=== PATIENT | female | born 2005 | race Caucasian/White ===

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

== ENCOUNTER 2024-01-17 04:27 | Emergency (ER) | payer BC ==
[2024-01-17 05:58] LABS: Basophils % (A) 0 %; Eosinophils # (A) 0.2 k/uL (0-0.7); Eosinophils % (A) 1 %; HCT 36.1 % (34.0-46.0); HGB 11.1 gm/dL (11.4-16.0); Hypochromasia Slight; Lymphocytes % (A) 17 %; MCHC 30.6 g/dL (31.0-37.0); MCV 81.7 fL (80.0-100.0); Mean Platelet Volume 9.4; Monocytes # (A) 0.6 k/uL (0-1.0); Monocytes % (A) 5 %; Neutrophils % (A) 76 %; Platelet Count 234 k/uL (150-450); RBC 4.42 m/uL (3.80-5.40); RDW 15.7 % (11.5-15.5); WBC 11.8 k/uL (4.0-11.0)
[2024-01-17 06:06] LABS: ALT 32 U/L (4-34); AST 55 U/L (14-36); African American GFR (CKD) >90 (>60 ml/min/1.73 sqM); Albumin 3.8 g/dL (3.5-5.0); Alkaline Phosphatase 78 U/L (38-126); Amylase 55 U/L (30-110); Anion Gap 6 mmol/L; Blood Urea Nitrogen 11 mg/dL (7-17); Calcium 8.9 mg/dL (8.4-10.2); Carbon Dioxide 26 mmol/L (22-30); Chloride 108 mmol/L (98-107); Glucose 97 mg/dL (74-99); Lipase 152 U/L (23-300); Non-African American GFR(CKD) >90 (>60 ml/min/1.73 sqM); Potassium 4.2 mmol/L (3.5-5.1); Sodium 140 mmol/L (137-145); Total Bilirubin 0.4 mg/dL (0.2-1.3); Total Protein 6.2 g/dL (6.3-8.2)
--- NOTE | 2024-01-17 06:31 | ED ---
Abdominal Pain HPI - General Chief Complaint: Abdominal Pain Stated Complaint: ABD Pain, Vomit, Hot flashes Time Seen by Provider: 01/17/24 05:56 Source: patient, RN notes reviewed Mode of arrival: ambulatory Limitations: no limitations - History of Present Illness Initial Comments: This is a 18-year-old female who presents to the emergency department for abdominal pain. Reports intermittent abdominal pain for the last 3 days. States that this morning she was woken up by pain in the upper abdominal region. She had some radiation of pain into the back. This has since started to improve to some extent, but states that this morning it was more severe than it had been in the past. She had associated nausea and vomiting this morning as well. Denies any changes in bowel or bladder habits. Prior to the last few days she has never experienced pain like this in the past. MD Complaint: abdominal pain - Related Data Home Medications Medication Instructions Recorded Confirmed Dexmethylphenidate HCl [Focalin Xr] 20 mg PO MOTUWETHFR 04/29/21 04/29/21 Multivitamins, Thera [Multivitamin 1 tab PO DAILY 04/29/21 04/29/21 (formulary)] Previous Rx's Medication Instructions Recorded Ketorolac [Toradol] 10 mg PO Q6HR PRN #15 tab 01/17/24 Ondansetron Odt [Zofran Odt] 4 mg PO Q8HR PRN #20 tab 01/17/24 Allergies Allergy/AdvReac Type Severity Reaction Status Date / Time No Known Allergies Allergy Verified 01/17/24 04:31 Review of Systems ROS Statement: Those systems with pertinent positive or pertinent negative responses have been documented in the HPI. ROS Other: All systems not noted in ROS Statement are negative. Past Medical History Past Medical History: No Reported History History of Any Multi-Drug Resistant Organisms: None Reported Past Surgical History: Adenoidectomy, Tonsillectomy Past Psychological History: No Psychological Hx Reported Smoking Status: Current some day smoker Past Alcohol Use History: Occasional Past Drug Use History: None Reported General Exam Limitations: no limitations General appearance: alert, in no apparent distress Head exam: Present: atraumatic, normocephalic, normal inspection Respiratory exam: Present: normal lung sounds bilaterally. Absent: respiratory distress, wheezes, rales, rhonchi, stridor Cardiovascular Exam: Present: regular rate, normal rhythm, normal heart sounds. Absent: systolic murmur, diastolic murmur, rubs, gallop, clicks GI/Abdominal exam: Present: soft, tenderness (Epigastric), normal bowel sounds. Absent: distended Neurological exam: Present: alert, oriented X3, CN II-XII intact Psychiatric exam: Present: normal affect, normal mood Skin exam: Present: warm, dry, intact, normal color. Absent: rash Course Vital Signs 01/17/24 01/17/24 01/17/24 04:31 06:00 07:53 Temperature 97.6 F 98.0 F 98.2 F Pulse Rate 56 L 49 L 52 L Respiratory 18 14 16 Rate Blood Pressure 101/63 92/57 103/69 O2 Sat by Pulse 100 99 100 Oximetry Medical Decision Making - Medical Decision Making This is a 18 year old female who presents to the emergency department for abdominal pain. Was pt. sent in by a medical professional or institution? @ -No Did you speak to anyone other than the patient for history? @ -No Did you review nursing and triage notes? @ -Yes, and I agree, it is accurate with regards to the patient's symptoms. Were old charts reviewed? @ -No Differential Diagnosis? @ -Differential Abdominal Pain Women: Appendicitis, Cholecystitis, diverticulosis, ischemic bowel, pancreatitis, hepatitis, UTI, gastroenteritis, AAA, incarcerated hernia, bowel obstruction, constipation, inflammatory bowel, hepatitis, peptic ulcer disease, splenic infarction, perforated viscus, vulvitis, ovarian torsion, PID, kidney stone, placenta abruption, this is not meant to be an all-inclusive list EKG interpreted by me (3pts min.)? @ -Not obtained X-rays interpreted by me (1pt min.)? @ -Not obtained CT interpreted by me (1pt min.)? @ -Not obtained U/S interpreted by me (1pt. min.)? @ -Gallbladder ultrasound obtained. My interpretation identifies cholelithiasis. What testing was considered but not performed? (CT, X-rays, U/S, labs)? Why? @ -None What meds were considered but not given? Why? @ -None Did you discuss the management of the patient with other professionals? @ -No Did you reconcile home meds? @ -No Was smoking cessation discussed for >3mins.? @ -No Was critical care preformed (if so, how long)? @ -No Were there social determinants of health that impacted care today? How? (Homelessness, low income, unemployed, alcoholism, drug addiction, transportation, low edu. Level, literacy, decrease access to med. care, custodial, rehab)? @ -No Was there de-escalation of care discussed even if they declined? (Discuss DNR or withdrawal of care, Hospice)? @ -No What co-morbidities impacted this encounter? (DM, HTN, Smoking, COPD, CAD, Cancer, CVA, Hep., AIDS, mental health diagnosis, sleep apnea, morbid obesity)? @ -None Was patient admitted / discharged? @ -Discharged. Lab work demonstrates mild leukocytosis and was otherwise fairly unremarkable. Gallbladder ultrasound obtained demonstrating cholelithiasis without evidence of acute cholecystitis. While in the emergency department her symptoms did resolve on their own and she did not request any pain medication. She was given IV fluids and pantoprazole. Symptoms likely related to an episode of biliary colic. Information for general surgery follow-up provided and she is advised to contact them for a follow-up appointment. Prescription for Toradol and Zofran provided for any additional flareups. She is advised to follow a bland and low-fat diet for the meantime as well to reduce the risk of symptom recurrence. Undiagnosed new problem with uncertain prognosis? @ -None Drug Therapy requiring intensive monitoring for toxicity (Heparin, Nitro, Insulin, Cardizem)? @ -None Were any procedures done? @ -None Diagnosis/symptom? @ -Cholelithiasis, biliary colic Acute, or Chronic, or Acute on Chronic? @ -Acute Uncomplicated (without systemic symptoms) or Complicated (systemic symptoms)? @ -Uncomplicated Side effects of treatment? @ -None Exacerbation, Progression, or Severe Exacerbation] @ -Not applicable Poses a threat to life or bodily function? @ -No Return precautions reviewed in depth, the patient is instructed to return to the emergency department with any new, worsening, or concerning symptoms. Patient ve rbalized understanding. This case was discussed in detail with the attending ED physician, Dr. Key. Presentation, findings, and treatment plan discussed in detail as well. - Lab Data Result diagrams: 01/17/24 05:27 01/17/24 05:27 Lab Results 01/17/24 01/17/24 Range/Units 05:27 05:27 WBC 11.8 H (4.0-11.0) k/uL RBC 4.42 (3.80-5.40) m/uL Hgb 11.1 L (11.4-16.0) gm/dL Hct 36.1 (34.0-46.0) % MCV 81.7 (80.0-100.0) fL MCH 25.0 (25.0-35.0) pg MCHC 30.6 L (31.0-37.0) g/dL RDW 15.7 H (11.5-15.5) % Plt Count 234 (150-450) k/uL MPV 9.4 Neutrophils % 76 % Lymphocytes % 17 % Monocytes % 5 % Eosinophils % 1 % Basophils % 0 % Neutrophils # 9.0 H (1.3-7.7) k/uL Lymphocytes # 2.0 (1.0-4.8) k/uL Monocytes # 0.6 (0-1.0) k/uL Eosinophils # 0.2 (0-0.7) k/uL Basophils # 0.0 (0-0.2) k/uL Hypochromasia Slight Sodium 140 (137-145) mmol/L Potassium 4.2 (3.5-5.1) mmol/L Chloride 108 H (98-107) mmol/L Carbon Dioxide 26 (22-30) mmol/L Anion Gap 6 mmol/L BUN 11 (7-17) mg/dL Creatinine 0.63 (0.52-1.04) mg/dL Est GFR (CKD-EPI)AfAm >90 (>60 ml/min/1.73 sqM) Est GFR (CKD-EPI)NonAf >90 (>60 ml/min/1.73 sqM) Glucose 97 (74-99) mg/dL Calcium 8.9 (8.4-10.2) mg/dL Total Bilirubin 0.4 (0.2-1.3) mg/dL AST 55 H (14-36) U/L ALT 32 (4-34) U/L Alkaline Phosphatase 78 (38-126) U/L Total Protein 6.2 L (6.3-8.2) g/dL Albumin 3.8 (3.5-5.0) g/dL Amylase 55 (30-110) U/L Lipase 152 (23-300) U/L - Radiology Data Radiology results: report reviewed, image reviewed Disposition Clinical Impression: Cholelithiasis, Biliary colic Disposition: HOME SELF-CARE Instructions (If sedation given, give patient instructions): Biliary Colic (ED), Gallstones (ED), Low Fat Diet (ED) Additional Instructions: Return to the emergency department with any new, worsening, or concerning symptoms. Take the Toradol with Tylenol as needed for pain relief. If you cho ose to take the Toradol, do not take any other anti-inflammatories such as ibuprofen, take one or the other. You can take the Zofran up to every 8 hours as needed for nausea and vomiting. Follow a bland and low-fat diet for the meantime to reduce the risk of symptom recurrence. You can contact the general surgery providers listed below for a follow-up appointment. Let them know that you were seen in the emergency department for abdominal pain and found to have gallstones. Follow up with your primary care provider in 1-2 days. Prescriptions: Ketorolac [Toradol] 10 mg PO Q6HR PRN #15 tab PRN Reason: Pain Ondansetron Odt [Zofran Odt] 4 mg PO Q8HR PRN #20 tab PRN Reason: Nausea And Vomiting Is patient prescribed a controlled substance at d/c from ED?: No Referrals: None,Stated [Primary Care Provider] - 1-2 days Kalani Talamantes MD [STAFF PHYSICIAN] - 1-2 days Nathan Biswas MD [Medical Doctor] - 1-2 days Gulshan Rogers MD [STAFF PHYSICIAN] - 1-2 days Time of Disposition: 08:22
--- NOTE | 2024-01-17 07:47 | US ---
EXAMINATION TYPE: US gallbladder DATE OF EXAM: 01/17/2024 COMPARISON: NONE CLINICAL INDICATION: Female, 18 years old with history of Epigastric pain; vomiting, abdominal pain TECHNIQUE: Multiple sonographic images of the right upper quadrant are obtained. FINDINGS: EXAM MEASUREMENTS: Liver Length: 17.5 cm Gallbladder Wall: 0.2 cm CBD: 0.4 cm Right Kidney: 10.1 x 4.3 x 5.2 cm HOT KNIFE FOXING CUTTER NOTES:*Technical limitations due to patient's body habitus and large amount of overlying bowel gas Pancreas: Obscured by bowel gas Liver: appears wnl as visualized Gallbladder: ?layer of small stones posteriorly Evidence for sonographic Toribio's sign: no CBD: wnl Right Kidney: lower pole obscured by overlying bowel gas IMPRESSION: Layering gallstones noted.
[2024-01-17] MEDS: PANTOPRAZOLE 40 MG/10 ML VIAL IVP STA (07:51)
[2024-01-17] MEDS: FAMOTIDINE 20 MG/2 ML VIAL IV STA (07:52)
[2024-01-17 07:54] VITALS: BP 103/69; PULSE 52; RESP 16; TEMP 98.2
[2024-01-17] MEDS: SODIUM CHLORIDE 0.9% 1,000 ML IV STA (07:57)
[2024-01-17 09:23] LABS: Appearance,Urine Cloudy (Clear); Bacteria,Urine Few /hpf; Bilirubin,Urine Negative (Negative); Blood,Urine Negative (Negative); Calcium Oxalate Crystals,Urine Occasional /hpf; Color,Urine Yellow; Glucose,Urine (UA) Negative (Negative); Ketones,Urine Negative (Negative); Leukocyte Esterase,Urine Trace (Negative); Mucus,Urine Many /hpf; Nitrite,Urine Negative (Negative); Protein,Urine Trace (Negative); Specific Gravity,Urine 1.029 (1.001-1.035); Squamous Epithelial Cell,Urine 11 /hpf (0-4); WBC,Urine 5 /hpf (0-5)
== END 2024-01-17 08:40 | disposition home or self-care (01) ==
LOC: EC 04:27
DX: K80.70 Calculus of gallbladder and bile duct without cholecystitis without obstruction (principal); F17.200 Nicotine dependence, unspecified, uncomplicated
CPT/HCPCS: 36415; 80053; 82150; 83690; 85025; 81001; 81025; 76705; 99284; 96374; 96375; 96361; J3490; C9113